=== PATIENT | male | born 1965 | race Caucasian/White ===

== ENCOUNTER 2018-01-21 15:10 | Emergency (ER) | payer SELFPAY ==
[2018-01-21 15:43] VITALS: BP 121/93
[2018-01-21] MEDS: 0.9 % SODIUM CHLORIDE 1,000 ML IV ONE (15:54)
[2018-01-21 15:57] LABS: BASOPHILS % 0.2 (0.0-1.5); EOSINOPHILS % 2.5 % (0.0-6.8); MONOCYTES % 7.4 % (0.0-11.0); NEUTROPHILS # 3.9 # k/uL (1.4-7.7)
[2018-01-21 16:12] LABS: eGFR (African) > 60; eGFR (Non-African) > 60
--- NOTE | 2018-01-21 16:19 | ED Physician Documentation ---
Abdominal Pain - HISTORIAN Historian: patient - HPI Stated Complaint: Diarrhea Chief Complaint: Abdominal Pain Onset: days ago Duration: worse Timing: still present Context: bad food (questionable). denies: out of country travel, recent trauma Severity: moderate Quality: cramping Associated Symptoms: chills, nausea, diarrhea. denies: fever Exacerbated by: nothing Relieved by: nothing Further Comments: yes (52 year old male patient presents with complaint of nausea and diarrhea since Thursday. Patient denies any vomiting. Reports 3 episodes of diarrhea today, c/o abdominal cramping. Has not taken any OTC medication for diarrhea.) - ROS CONST: no problems GI/: none. denies: constipation, black stools, bloody urine, bloody stools CVS/RESP: none EYES/ENT: none MS/SKIN/LYMPH: none NEURO/PSYCH: none - SOCIAL HX Smoking History: non-smoker - FAMILY HX Family History: denies: none - PAST HX Past History: none Other History: diabetes Type 2, other (History of IV drug use; non since 1989) Surgeries/Procedures: none Home Medications: Ambulatory Orders Medication Instructions Recorded NK [NK] 01/21/18 Allergies/Adverse Reactions: Allergies Allergy/AdvReac Type Severity Reaction Status Date / Time No Known Allergies Allergy Verified 01/21/18 15:44 - VITAL SIGNS Vital Signs: Vital Signs Temp Pulse Resp BP Pulse Ox 97.4 F L 79 16 121/93 95 01/21/18 15:10 01/21/18 15:49 01/21/18 15:10 01/21/18 15:10 01/21/18 15:49 - REVIEWED ASSESSMENTS Nursing Assessment Reviewed: Yes Vitals Reviewed: Yes Progress - Progress Progress: Reviewed lab results with patient and . Will treat symptoms, give 1L NS and discharge home. ED Results Lab/Radiology - Lab Results Lab Results: Lab Results 01/21/18 01/21/18 15:50 15:50 WBC 6.00 K/ul K/ul (4.00-12.00) RBC 6.04 M/ul H M/ul (3.90-5.20) Hgb 17.5 g/dL g/dL (12.0-18.0) Hct 51.4 % % (37.0-53.0) MCV 85.0 fl fl (80.0-100.0) MCH 29.0 pg pg (28.0-34.0) MCHC 34.1 g/dL g/dL (30.0-36.0) RDW 13.0 % % (11.3-14.3) Plt Count 211 K/mm3 K/mm3 (130-400) Neut % (Auto) 65.3 % % (39.0-79.0) Lymph % (Auto) 22.9 % % (16.0-50.0) [place] % (Auto) 7.4 % % (0.0-11.0) Eos % (Auto) 2.5 % % (0.0-6.8) Baso % (Auto) 0.2 (0.0-1.5) Neut # (Auto) 3.9 # k/uL # k/uL (1.4-7.7) Lymph # (Auto) 1.4 # k/uL # k/uL (0.6-4.0) [place] # (Auto) 0.4 # k/uL # k/uL (0.0-0.9) Eos # (Auto) 0.2 # k/uL # k/uL (0.0-0.6) Baso # (Auto) 0.0 # k/uL # k/uL (0.0-0.5) Reactive Lymphs % 1.9 % % (0.0-5.0) Reactive Lymphs # 0.1 # k/uL # k/uL (0.0-0.8) Sodium 139 mmol/L mmol/L (136-145) Potassium 4.1 mmol/L mmol/L (3.5-5.1) Chloride 100 mmol/L mmol/L (98-107) Carbon Dioxide 25 mmol/L mmol/L (22-30) BUN 15 mg/dL mg/dL (9-20) Creatinine 0.90 mg/dL mg/dL (0.66-1.25) Estimated Creat Clear 317 Est GFR ( Amer) > 60 (60 - ) Est GFR (Non-Af Amer) > 60 (60 - ) Glucose 82 mg/dL mg/dL (74-106) Calcium 8.9 mg/dL mg/dL (8.4-10.2) Total Bilirubin 0.8 mg/dL mg/dL (0.2-1.3) AST 24 U/L U/L (15-46) ALT 35 U/L U/L (13-69) Alkaline Phosphatase 83 U/L U/L (38-126) Total Protein 7.2 g/dL g/dL (6.3-8.2) Albumin 4.0 g/dL g/dL (3.5-5.0) - Orders Orders: ED Orders Category Date Time Status Continuous EKG monitoring Q30M Care 01/21/18 15:19 Active Continuous Pulse Oximetry Q30M Care 01/21/18 15:[address] IV Lock 1T Care 01/21/18 15:20 Active CBC/PLATELET/DIFF Stat Lab 01/21/18 15:50 Completed CMP Stat Lab 01/21/18 15:50 Completed UA W/MICRO IF INDICATED Stat Lab 01/21/18 15:20 Ordered 0.9 % Sodium Chloride [Normal Saline] 1,000 ml Med 01/21/18 15:20 Discontinued IV NOW Loperamide HCl [Immodium] Med 01/21/18 16:21 Discontinued 2 mg PO NOW ONE Loperamide HCl [Immodium] Med 01/21/18 16:21 Discontinued 4 mg PO NOW ONE Promethazine HCl [Phenergan] Med 01/21/18 16:21 Discontinued 25 mg IM NOW ONE Abdominal Pain Physical Exam - Physical Exam General Appearance: mild distress EENT: eye inspection normal, ALICIA RESPIRATORY: no resp distress, chest non-tender, breath sounds normal CVS: reg rate & rhythm, heart sounds normal, equal pulses, no murmur, no gallop , PMI nml, no JVD, no friction rub, 24 ABDOMEN: soft, no organomegaly, no abdominal bruit, no distension, abnormal bowel sounds, decreased BS (positive Pride's), other (protuberant abdomen) SKIN: normal color, warm/dry, NR, INT, PAL, DR EXTREMITIES: non-tender, normal range of motion, no evidence of injury, no edema , J, [employer] NEURO: oriented X3, CN's nml as tested, motor nml, sensation nml Vital Signs: Vital Signs Temp Pulse Resp BP Pulse Ox 97.4 F L 79 16 121/93 95 01/21/18 15:10 01/21/18 15:49 01/21/18 15:10 01/21/18 15:10 01/21/18 15:49 Discharge Clincal Impression: Nausea Diarrhea Qualifiers: Diarrhea type: unspecified type Qualified Code(s): R19.7 - Diarrhea, unspecified Referrals: Primary Doctor,No [Primary Care Provider] - 2 Days Additional Instructions: Over the counter immodium; use per package directions for your Diet: Clear liquids Sprite/7-up Juices apple, white grape Gatorade/Powerade Jello Popsicles When tolerating clear liquids, advance to bland/brat diet - such as crackers, rice, Bananas, apples/applesauce or toast Return to the emergency department or call your doctor, if you are having severe abdominal pain, fever >101.0, or if there is blood in the vomit or diarrhea, or you cannot keep down liquids or solid food. Condition: Stable Disposition: 01 HOME, SELF-CARE Decision to Admit: NO Decision Time: 16:40
[2018-01-21] MEDS ORDERED: PHARMACY KEY 1 EACH EACH MC ONE (16:41)
[2018-01-21] MEDS: LOPERAMIDE HCL 2 MG CAPSULE PO ONE ×2 (16:55→16:56)
[2018-01-21] MEDS: PROMETHAZINE HCL 25 MG/ML VIAL IM ONE (16:55)
== END 2018-01-21 17:06 | disposition home or self-care (01) ==
LOC: ED 15:10
DX: R19.7 Diarrhea, unspecified (principal)
CPT/HCPCS: 80053; 85025; J2550; J7030; 96365; 96372; 99282; 99283; S1016